=== PATIENT | female | born 1990 | race Caucasian/White ===

== ENCOUNTER 2017-02-27 20:36 | Inpatient (IN) | payer BC, SELFPAY ==
[~2017-02-27] VITALS: Ht 154.9 cm; Wt 67.6 kg
[2017-02-27 21:37] LABS: HEMOGLOBIN 11.3 gm/dl (12.3-15.3); RED BLOOD COUNT 4.17 M/UL (4.00-5.10); WHITE BLOOD COUNT 10.1 K/UL (4.5-11.0)
[2017-03-01 03:21] LABS: HEMOGLOBIN 9.1 gm/dl (12.3-15.3)
[2017-03-01] MEDS ORDERED: COLACE 100MG C100 MG PO (12:38)
== END 2017-03-01 14:03 | disposition home or self-care (01) | DRG 775 ==
LOC: GENOP 20:36 → OB 21:26
PROVIDERS: ADMIT Obstetrics & Gynecology
PROC: 10E0XZZ Delivery of Products of Conception, External Approach (ICD-10-PCS; principal; 2017-02-28)
PROC: 0KQM0ZZ Repair Perineum Muscle, Open Approach (ICD-10-PCS; 2017-02-28)
PROC: 3E0234Z Introduction of Serum, Toxoid and Vaccine into Muscle, Percutaneous Approach (ICD-10-PCS; 2017-02-28)
PROC: 3E0234Z Introduction of Serum, Toxoid and Vaccine into Muscle, Percutaneous Approach (ICD-10-PCS; 2017-03-01)
DX: O70.1 Second degree perineal laceration during delivery (principal); Z37.0 Single live birth; Z3A.37 37 weeks gestation of pregnancy
CPT/HCPCS: 36415; 82800; 85014; 85018; 85025; 90707; 90715; J2405; J2590; J2795; J3010; J3430; J7120

== ENCOUNTER 2020-12-16 18:55 | Inpatient (IN) | payer BC, OTHER ==
[~2020-12-16] VITALS: Ht 152.4 cm; Wt 74.8 kg
[~2020-12-16 18:55] MED LIST: COLACE 100MG C100 MG PO
[2020-12-16 19:45] LABS: HEMOGLOBIN 13.3 gm/dl (12.3-15.3); RED BLOOD COUNT 4.56 M/UL (4.00-5.10)
[2020-12-16] MEDS ORDERED: PEPCID20 MG PO (22:00)
[2020-12-16] MEDS ORDERED: PRENATAL VITAM1 EAC3 PO (22:00)
[2020-12-17 05:55] LABS: HEMOGLOBIN 11.7 gm/dl (12.3-15.3)
[2020-12-18] MEDS ORDERED: DOCUSATE SODIU100 MG PO (11:50)
[2020-12-18] MEDS ORDERED: IBUPROFEN600 MG PO (11:50)
[2020-12-18] MEDS ORDERED: HYDROCODON-ACE1 EAC4 PO (11:50)
== END 2020-12-18 16:06 | disposition home or self-care (01) | DRG 807 ==
LOC: MO 18:55 → OB 21:21
PROVIDERS: ADMIT Obstetrics & Gynecology
PROC: 10E0XZZ Delivery of Products of Conception, External Approach (ICD-10-PCS; principal; 2020-12-16)
PROC: 0KQM0ZZ Repair Perineum Muscle, Open Approach (ICD-10-PCS; 2020-12-16)
PROC: 3E0234Z Introduction of Serum, Toxoid and Vaccine into Muscle, Percutaneous Approach (ICD-10-PCS; 2020-12-18)
DX: O62.3 Precipitate labor (principal); Z37.0 Single live birth; Z3A.37 37 weeks gestation of pregnancy; O70.1 Second degree perineal laceration during delivery; O75.89 Other specified complications of labor and delivery; G43.909 Migraine, unspecified, not intractable, without status migrainosus; Z20.822 Contact with and (suspected) exposure to COVID-19; Z23 Encounter for immunization
CPT/HCPCS: 36415; 85014; 85018; 85025; 87635; 90471; 90707; J1170; J2590

== ENCOUNTER → 2021-11-04 | Outpatient (CLI) | payer BC, OTHER ==
[~2021-11-04] MED LIST changes: +DOCUSATE SODIU100 MG PO; +HYDROCODON-ACE1 EAC4 PO; +IBUPROFEN600 MG PO; +PEPCID20 MG PO; +PRENATAL VITAM1 EAC3 PO
[2021-11-04 13:32] LABS: HEMOGLOBIN 13.6 gm/dl (12.3-15.3); RED BLOOD COUNT 4.56 M/UL (4.00-5.10); WHITE BLOOD COUNT 5.8 K/UL (4.5-11.0)
[2021-11-05 07:10] LABS: ALKALINE PHOSPHATASE, S 97 IU/L (44-121); ALT (SGPT) 76 IU/L (0-32); AST (SGOT) 45 IU/L (0-40); BILIRUBIN, TOTAL 0.3 mg/dL (0.0-1.2); BUN 12 mg/dL (6-20); BUN/CREATININE RATIO 18 (9-23); CALCIUM, SERUM 9.5 mg/dL (8.7-10.2); CARBON DIOXIDE, TOTAL 23 mmol/L (20-29); CHLORIDE, SERUM 100 mmol/L (96-106); CREATININE, SERUM 0.67 mg/dL (0.57-1.00); EGFR IF AFRICN AM 134 (>59); EGFR IF NONAFRICN AM 116 (>59); GLOBULIN, TOTAL 2.4 g/dL (1.5-4.5); GLUCOSE, SERUM 83 mg/dL (65-99); POTASSIUM, SERUM 4.4 mmol/L (3.5-5.2); PROTEIN, TOTAL, SERUM 7.2 g/dL (6.0-8.5); SODIUM, SERUM 137 mmol/L (134-144)
[2021-11-05 08:13] LABS: C-REACTIVE PROTEIN, QUANT 1 mg/L (0-10); FERRITIN 31 ng/mL (15-150); IRON BIND.CAP.(TIBC) 343 ug/dL (250-450); IRON SATURATION 31 % (15-55); IRON, SERUM 106 ug/dL (27-159); RHEUMATOID ARTHRITIS FACTOR <10.0 IU/mL (<14.0); UIBC 237 ug/dL (131-425); VITAMIN D, 25-HYDROXY 20.3 ng/mL (30.0-100.0)
== END ==
LOC: LAB 10:53
PROVIDERS: Nurse Practitioner Family
DX: R76.0 Raised antibody titer (principal); E55.9 Vitamin D deficiency, unspecified; E61.1 Iron deficiency; D89.9 Disorder involving the immune mechanism, unspecified; M25.50 Pain in unspecified joint; R76.8 Other specified abnormal immunological findings in serum
CPT/HCPCS: 36415; 80053; 82728; 83520; 83540; 83550; 84439; 84443; 85025; 85652; 86140; 86200; 86431